=== PATIENT | female | born 1965 | race African-American/Black ===

== ENCOUNTER → 2016-11-30 | Outpatient (CLI) | payer OTHER ==
[~2016-11-30] MED LIST: ADAPEX; ADIPEX-P37.5 M1 PO; ALBUTEROL INH; AMOXICILLIN 50500 M1 PO; AUGMENTIN 875875 M1 PO; AUGMENTIN 875875 MG PO; AZITHROMYCIN 2250 MG PO; AZITHROMYCIN PO; BREO ELLIPTA 11 EACH IH; CEFTIN 250 MG250 MG; COMBIVENT RESPIM4 GM; CORTISPORIN OTI10 ML OTIC; DIETHYLPROPION25 MG PO; DIFLUCAN150 MG PO; DUONEB 2.5-0.5 M3 ML INH; GLUCOPHAGE XR500 M1 PO; GLUCOPHAGE500 MG; GLUCOSE TEST S1 EACH; LASIX 40 MG TAB40 M1 PO; METFORMIN HCL500 MG; MOBIC15 MG; MUCINEX DM ER1 EAC1 PO; MUCINEX600 MG PO; NAPROSYN500 MG PO; NORCO 5-325 TA1 EACH PO; PERCOCET 5-3251 EACH PO; PHENERGAN 25 MG25 M1 PO; PHENTERMINE H37.5 MG PO; PREDNISONE 10 M10 M1; PREDNISONE 10 M10 M1 PO; PREDNISONE 10 M10 MG PO; PREDNISONE 20 M20 M1 PO; PREDNISONE 5 MG5 M1 PO; PREDNISONE PO; PREDNISONE50 MG PO; PREMARIN0.625 MG PO; PROAIR HFA8.5 GM; PROAIR HFA8.5 GM INH; PROMETHAZINE-C120 ML PO; PULMICORT0.5 MG/21 INH; SIDESTREAM NEB1 EACH; SINGULAIR 10 MG10 M1; SINGULAIR 10 MG10 M1 PO; SYMBICORT160 MCG/4. INH; TRAMADOL 50 MG50 MG PO; TUSSIONEX PENN473 ML PO; ULTRAM 50MG TAB50 MG PO; VENTOLIN HFA 1818 GM INH; VICTOZA0.6 MG/0.1 SUBQ; VITAMIN D 5050000 I1 PO; ZPAK PO
== END ==
LOC: RAD 07:54
DX: Z12.31 Encounter for screening mammogram for malignant neoplasm of breast (principal)

== ENCOUNTER → 2017-01-31 | Outpatient (CLI) | payer OTHER | LOC: ULTRA 16:11 | DX: M25.48 Effusion, other site (principal); M79.89 Other specified soft tissue disorders; R60.1 Generalized edema ==

== ENCOUNTER → 2018-01-28 | Outpatient (CLI) | payer OTHER | LOC: RAD 14:43 | DX: Z12.31 Encounter for screening mammogram for malignant neoplasm of breast (principal) ==

== ENCOUNTER 2018-08-13 03:59 | Emergency (ER) | payer OTHER ==
[~2018-08-13] VITALS: Ht 172.7 cm; Wt 127.0 kg
[~2018-08-13 03:59] MED LIST changes: +AUGMENTIN 875-1 EACH PO; +CLARITIN10 MG PO; +FLONASE 0.05%50 MCG NASAL; +PREDNISONE 20 M20 MG PO; +PRILOSEC 20 MG20 MG PO
[2018-08-13 05:39] LABS: ABSOLUTE NEUTROPHILS 4.4 thou/uL (1.4-8.2); BASOPHILS 0.7 % (0.0-2.0); HEMATOCRIT 39.1 % (37.0-47.0); HEMOGLOBIN 13.1 gm/dL (12.0-15.0); LYMPHOCYTES 21.2 % (24.0-44.0); MCH 30.4 pg (26.0-34.0); MCHC 33.5 g/dL (28.0-37.0); MCV 90.7 fL (80.0-100.0); MONOCYTES 4.3 % (1.0-8.0); PLATELET COUNT 289 thou/uL (150-400); POLYS 70.8 % (36.0-66.0); RBC 4.32 mil/uL (4.20-5.00); RDW 13.4 % (10.5-14.5); WBC 6.2 thou/uL (4.0-11.0)
[2018-08-13 05:42] LABS: CALCIUM 8.8 mg/dL (8.5-10.1); POTASSIUM 4.1 mmol/L (3.5-5.1)
[2018-08-13] MEDS ORDERED: NORCO 5-325 TA1 EACH PO (06:05)
[2018-08-13 06:21] VITALS: BP 137/71
== END 2018-08-13 06:21 | disposition home or self-care (01) ==
LOC: ER 03:59
PROVIDERS: Student in an Organized Health Care Education/Training Program
DX: M19.011 Primary osteoarthritis, right shoulder (principal); J45.909 Unspecified asthma, uncomplicated; G43.909 Migraine, unspecified, not intractable, without status migrainosus; J32.9 Chronic sinusitis, unspecified; Z90.10 Acquired absence of unspecified breast and nipple; Z88.8 Allergy status to other drugs, medicaments and biological substances; Z88.2 Allergy status to sulfonamides; Z90.89 Acquired absence of other organs; Z90.711 Acquired absence of uterus with remaining cervical stump

== ENCOUNTER 2018-09-05 14:32 | Emergency (ER) | payer OTHER ==
[~2018-09-05] VITALS: Ht 172.7 cm; Wt 113.4 kg
[2018-09-05 15:24] LABS: ABSOLUTE NEUTROPHILS 3.2 thou/uL (1.4-8.2); EOSINOPHILS 5.3 % (0.0-3.0); HEMOGLOBIN 13.1 gm/dL (12.0-15.0); LYMPHOCYTES 33.4 % (24.0-44.0); MCH 30.8 pg (26.0-34.0); MCHC 34.4 g/dL (28.0-37.0); MCV 89.4 fL (80.0-100.0); MONOCYTES 8.2 % (1.0-8.0); PLATELET COUNT 286 thou/uL (150-400); POLYS 51.1 % (36.0-66.0); RBC 4.26 mil/uL (4.20-5.00); RDW 13.9 % (10.5-14.5); WBC 6.3 thou/uL (4.0-11.0)
[2018-09-05 15:33] LABS: ANION GAP 7 mmol/L (7-16); BUN 11 mg/dL (7-18); CALCIUM 8.7 mg/dL (8.5-10.1); CHLORIDE 104 mmol/L (98-107); CO2 29 mmol/L (21-32); CREATININE 1.2 mg/dL (0.6-1.0); GLUCOSE 116 mg/dL (74-106); POTASSIUM 3.7 mmol/L (3.5-5.1); SODIUM 140 mmol/L (136-145)
[2018-09-05 15:42] LABS: TROPONIN-I <0.06 ng/mL (<0.06)
[2018-09-05] MEDS ORDERED: MIRALAX17 GM PO (16:31)
[2018-09-05] MEDS ORDERED: BENTYL 20 MG TA20 M1 PO (16:31)
[2018-09-05 16:58] VITALS: BP 124/76
--- NOTE | 2018-09-06 10:44 | EKG ---
[place] [address] [facility] [place] [address] ELECTROCARDIOGRAM REPORT Name: VIRGILIO SEYMOUR [facility] [id number] Admission: 09/05/18 Attend Phys: Discharge: 09/05/18 Date of : 63 Report #: [id number] THIS REPORT FOR: //name// [facility] ED Test Date: 2018-09-05 Test Time: 15:16:31 Pat Name: VIRGILIO SEYMOUR Department: Room: Gender: F Inside Tester: : 1965 Requested By: Fabian Gomez Order Number: [id number] MD: Austin Kline Measurements Intervals [place] Rate: 93 P: 76 WV: 172 QRS: -4 QRSD: 99 T: 33 QT: 381 QTc: 474 Interpretive Statements Sinus rhythm RSR' in V1 or V2, right VCD Compared to ECG 05/01/2016 20:41:05 Sinus tachycardia no longer present Electronically Signed On 09-06-2018 10:44:27 LAMP SHADE MAKER by Austin Kline [email or web address] <ELECTRONICALLY SIGNED> By: Austin Kline MD, [facility] 09/06/18 1044 15 15 Austin Kline MD, FACC /EPI
== END 2018-09-05 18:03 | disposition home or self-care (01) ==
LOC: ER 14:32
PROVIDERS: Emergency Medicine
DX: K59.00 Constipation, unspecified (principal); R07.89 Other chest pain; J45.909 Unspecified asthma, uncomplicated; G43.909 Migraine, unspecified, not intractable, without status migrainosus; E66.9 Obesity, unspecified; Z68.38 Body mass index [BMI] 38.0-38.9, adult; Z88.2 Allergy status to sulfonamides; Z88.1 Allergy status to other antibiotic agents; Z88.8 Allergy status to other drugs, medicaments and biological substances; Z98.890 Other specified postprocedural states; Z90.711 Acquired absence of uterus with remaining cervical stump

== ENCOUNTER 2019-01-23 00:35 | Emergency (ER) | payer OTHER ==
[~2019-01-23] VITALS: Ht 170.2 cm; Wt 117.9 kg
[~2019-01-23 00:35] MED LIST changes: +BENTYL 20 MG TA20 M1 PO; +MIRALAX17 GM PO
[2019-01-23 01:36] LABS: URINE BILIRUBIN NEGATIVE (Negative); URINE BLOOD NEGATIVE (Negative); URINE CLARITY CLEAR; URINE COLOR YELLOW; URINE GLUCOSE-RANDOM* NEGATIVE (Negative); URINE KETONES NEGATIVE (Negative); URINE LEUKOCYTES-REFLEX NEGATIVE (Negative); URINE NITRITE-REFLEX NEGATIVE (Negative); URINE PROTEIN (DIPSTICK) NEGATIVE (Negative); URINE SPECIFIC GRAVITY >= 1.030 (1.005-1.035); URINE UROBILINOGEN 0.2 E.U./dl (0.2-1.0)
[2019-01-23 01:46] LABS: BASOPHILS 0.7 % (0.0-2.0); EOSINOPHILS 3.8 % (0.0-3.0); HEMATOCRIT 38.4 % (37.0-47.0); HEMOGLOBIN 12.8 gm/dL (12.0-15.0); LYMPHOCYTES 36.8 % (24.0-44.0); MCH 30.8 pg (26.0-34.0); MCHC 33.4 g/dL (28.0-37.0); MCV 92.3 fL (80.0-100.0); MONOCYTES 11.3 % (1.0-8.0); PLATELET COUNT 295 thou/uL (150-400); POLYS 47.4 % (36.0-66.0); RBC 4.16 mil/uL (4.20-5.00); RDW 14.3 % (10.5-14.5); WBC 6.4 thou/uL (4.0-11.0)
[2019-01-23 01:50] LABS: CALCIUM 9.1 mg/dL (8.5-10.1); CREATININE 0.9 mg/dL (0.6-1.0); POTASSIUM 3.8 mmol/L (3.5-5.1)
[2019-01-23 01:56] LABS: ALBUMIN 3.6 g/dL (3.4-5.0); TOTAL BILIRUBIN 0.3 mg/dL (<0.1-1.0); TOTAL PROTEIN 7.3 g/dL (6.4-8.2)
[2019-01-23] MEDS ORDERED: LIDODERM1 EACH TOP (02:05)
[2019-01-23] MEDS ORDERED: ROBAXIN500 MG PO (02:05)
[2019-01-23 03:00] VITALS: BP 131/83
== END 2019-01-23 03:05 | disposition home or self-care (01) ==
LOC: ER 00:35
PROVIDERS: Emergency Medicine
DX: S39.012A Strain of muscle, fascia and tendon of lower back, initial encounter (principal); J45.909 Unspecified asthma, uncomplicated; Z90.711 Acquired absence of uterus with remaining cervical stump; G43.909 Migraine, unspecified, not intractable, without status migrainosus; E66.9 Obesity, unspecified; Z68.41 Body mass index [BMI] 40.0-44.9, adult; Z88.2 Allergy status to sulfonamides; Z88.1 Allergy status to other antibiotic agents; Z88.8 Allergy status to other drugs, medicaments and biological substances; X58.XXXA Exposure to other specified factors, initial encounter; Y93.89 Activity, other specified; Y92.89 Other specified places as the place of occurrence of the external cause; Y99.8 Other external cause status

== ENCOUNTER 2019-02-03 07:15 | Emergency (ER) | payer OTHER ==
[~2019-02-03] VITALS: Ht 172.7 cm; Wt 116.6 kg
[~2019-02-03 07:15] MED LIST changes: +LIDODERM1 EACH TOP; +ROBAXIN500 MG PO
[2019-02-03 08:19] LABS: HEMOGLOBIN 12.5 gm/dL (12.0-15.0); MCHC 33.7 g/dL (28.0-37.0); MCV 92.1 fL (80.0-100.0); RBC 4.02 mil/uL (4.20-5.00); RDW 14.1 % (10.5-14.5); WBC 6.1 thou/uL (4.0-11.0)
[2019-02-03 08:26] LABS: ANION GAP 4 mmol/L (7-16); BUN 12 mg/dL (7-18); CALCIUM 8.9 mg/dL (8.5-10.1); CHLORIDE 107 mmol/L (98-107); CO2 29 mmol/L (21-32); CREATININE 0.9 mg/dL (0.6-1.0); GLUCOSE 98 mg/dL (74-106); POTASSIUM 3.8 mmol/L (3.5-5.1); SODIUM 140 mmol/L (136-145)
[2019-02-03 08:35] LABS: TROPONIN-I <0.06 ng/mL (<0.06)
[2019-02-03] MEDS ORDERED: ALBUTEROL2.5 MG/31 INH (09:09)
[2019-02-03] MEDS ORDERED: PREDNISONE50 MG PO (09:09)
[2019-02-03] MEDS ORDERED: GUAIFEN-CODEINE10 ML PO (09:09)
[2019-02-03 09:24] VITALS: BP 119/69
--- NOTE | 2019-02-04 08:10 | EKG ---
[place] [address] [facility] [place] [address] ELECTROCARDIOGRAM REPORT Name: IVRGILIO SEYMOUR [id number] ������������������ Admission: 02/03/19 ������������������ Attend Phys: Discharge: 02/03/19 ������������������ Date of : 63 Report #: [id number] ����������������������������������������������������������������� [id number] THIS REPORT FOR: //name// [facility] ED Test Date: 2019-02-03 Test Time: 08:03:47 Pat Name: VIRGILIO SEYMOUR Department: Room: Gender: F Maintenance Mechanic Elevators: : 1965 Requested By: Alise Cueto Order Number: [id number] MD: Austin Kline Measurements Intervals [place] Rate: 94 P: 75 FL: 176 QRS: 14 QRSD: 92 T: 38 QT: 383 QTc: 479 Interpretive Statements Sinus rhythm RSR' in V1 or V2, probably normal variant Compared to ECG 09/05/2018 15:16:31 No significant changes Electronically Signed On 02-04-2019 8:10:14 CDT by Austin Kline [email or web address] ��������������������������������������������� <ELECTRONICALLY SIGNED> ���������������������������������������� By: Austin Kline MD, [facility] ��������������������������������������������� 02/04/19809 D: [id number] 2 Austin Kline MD, FAC /EPI
== END 2019-02-03 09:01 | disposition home or self-care (01) ==
LOC: ER 07:15
PROVIDERS: Emergency Medicine
DX: R06.00 Dyspnea, unspecified (principal); J45.909 Unspecified asthma, uncomplicated; G43.909 Migraine, unspecified, not intractable, without status migrainosus; E66.9 Obesity, unspecified; Z88.5 Allergy status to narcotic agent; Z88.1 Allergy status to other antibiotic agents; Z88.2 Allergy status to sulfonamides; Z88.8 Allergy status to other drugs, medicaments and biological substances; Z68.39 Body mass index [BMI] 39.0-39.9, adult; Z98.890 Other specified postprocedural states; Z87.890 Personal history of sex reassignment

== ENCOUNTER 2019-02-05 15:08 | Inpatient (IN) | payer OTHER ==
[~2019-02-05] VITALS: Ht 172.7 cm; Wt 117.5 kg
--- NOTE | ~2019-02-05 | H ---
[facility] [place] [address] HISTORY AND PHYSICAL Name: VIRGILIO SEYMOUR Room #: 206-P ADM IN M.R.#: [id number] Admission: 02/05/19 ������������������ Attend Phys: Sam Tapia MD Discharge: ������������������ Date of : 63 Report #: [id number] THIS REPORT FOR: //name// CC: Sam Tapia DATE OF SERVICE: 02/05/2019 CHIEF COMPLAINT: Persistent asthma flare failing outpatient therapy. HISTORY OF PRESENT ILLNESS: For about the past 2 weeks, the patient has been battling an asthma flare. Most recently, she was in the Emergency Room 4 days ago at which point prednisone 50 mg daily was added to her regimen. She came to see me in the office this morning and still has not improved. She continues to have chest tightness, cough, dyspnea, chest pressure and is now producing purulent sputum. She has been hospitalized for asthma about every other year for the last 7 years, but has not been hospitalized since 2017. PAST MEDICAL HISTORY: Significant for asthma. She has had several of her asthma flares triggered by sinusitis. She has mild insulin resistance, but when treated with steroids, her blood sugars actually go up into the diabetic range. Her asthma began to be symptomatic in 1995. She had sinus surgery in September 2008. She has had a history of elevated IgE levels. She had a "partial hysterectomy" with [address] in October 2005. Dr. Bud Burdick (dry molder) diagnosed her with idiopathic urticaria. She has had breast reduction surgery in 2002. Sinus surgery, migraine headaches, GERD. She has had "arthritis" for some time now, most recently, she has been seeing Dr. Adamson who diagnosed her with rheumatoid arthritis for which she is undergoing treatment. CURRENT MEDICATIONS: Virtussin AC -- codeine based cough syrup, prednisone 50 mg a day for the last 4 days, is a new medication. She has ipratropium/albuterol by nebulizer at home, and albuterol by itself was added at a recent ER visit and ProAir inhaler. She takes montelukast daily for her asthma and has also been taking Mucinex DM twice daily. Methotrexate 6 tablets of 2.5 mg each every Saturday, folic acid daily, hydroxychloroquine 200 mg once daily, sulfasalazine 500 mg tablets twice daily, diclofenac 75 mg twice daily by Dr. Adamson for her rheumatoid arthritis, folic [address] [address] HISTORY AND PHYSICAL Name: VIRGILIO SEYMOUR Room #: 206-P [facility] ..#: [id number] Admission: 02/05/19 ������������������ Attend Phys: Sam Tapia MD Discharge: ������������������ Date of : 63 Report #: [id number] 1 daily. Furosemide 40 mg as needed for swelling in her legs, Belviq and phentermine [address] Sobeida Evans for her obesity. Methocarbamol 500 mg 3 times daily as needed for muscle relaxer. ALLERGIES: MORPHINE INJECTION GAVE HER DYSPHORIC FEELING AND NAUSEA AND VOMITING. SHE EXPERIENCED HALLUCINATION FEELINGS WHILE TAKING SULFAMETHOXAZOLE/TRIMETHOPRIM AND PHENAZOPYRIDINE SEVERAL YEARS AGO FOR URINARY TRACT INFECTION. FAMILY HISTORY: She has siblings and children who have asthma. SOCIAL HISTORY: She is and works at a desk job safety leader. She does not drink nor smoke. REVIEW OF SYSTEMS: Is negative except for the HPI above -- her rheumatoid arthritis symptoms are well controlled on her current regimen. PHYSICAL EXAMINATION: GENERAL: Shows a middle-aged woman with some respiratory distress -- in the hospital this evening after several breathing treatments, she is feeling better. HEENT: Unremarkable. LUNGS: Clear, but deep breathing causes uncontrollable paroxysm of coughing. CARDIOVASCULAR: S1 and S2 are normal. ABDOMEN: Soft and nontender without hepatosplenomegaly and is obese. EXTREMITIES: There is only a trace edema in her ankles and calves this evening. NEUROLOGIC: Screening neurological examination is intact. Chest x-ray from yesterday is normal. LABORATORY DATA: Fingerstick glucose is 157 after given IV Solu-Medrol. Complete metabolic profile and CBC are in the normal range. There is some mild left shift of 76% neutrophils, to be expected after receiving prednisone. ASSESSMENT: 1. Persistent asthma flare. 2. History of sinus infection triggering asthma in the past. 3. Insulin resistance that develops geovanna hyperglycemia with a corticosteroid administration. 4. Stable, controlled rheumatoid arthritis. 5. She is immunosuppressed from her methotrexate as well as her recent prednisone. 6. Acute bronchitis with the development of purulent sputum. 7. Obesity with a height of 172 cm when admitted to the hospital and weight of [facility] [address] [place] [address] HISTORY AND PHYSICAL Name: VIRGILIO SEYMOUR Room #: 206-P ADM IN M.R.#: [id number] Admission: 02/05/19 ������������������ Attend Phys: Sam Tapia MD Discharge: ������������������ Date of : 63 Report #: [id number] 259 pounds for a body mass index of 39.70, essentially a body mass index of 40. PLAN: She was seen earlier this afternoon by Dr. Perez Alonso of the Pulmonary Medicine Department and admission was directed through his office. He has ordered antibiotics, intravenous corticosteroids and bttsja-ril-urhna aerosolized bronchodilator treatments. Sliding scale insulin was used to control her blood sugars as they become elevated, which is anticipated because it has happened in the past. Dr. Alonso has ordered subcutaneous heparin for deep venous thrombosis prophylaxis. A CT scan of the sinuses will be performed to see if an acute/chronic sinus infection may be one of her asthma triggers. ��������������������������������������������� ���������������������������������������� By: ��������������������������������������������� [id number] Sam Tapia MD /raquel
[~2019-02-05 15:08] MED LIST changes: +ALBUTEROL2.5 MG/31 INH; +GUAIFEN-CODEINE10 ML PO
[2019-02-05 15:51] LABS: HEMATOCRIT 37.8 % (37.0-47.0); HEMOGLOBIN 12.5 gm/dL (12.0-15.0); MCH 30.4 pg (26.0-34.0); MCV 92.2 fL (80.0-100.0); PLATELET COUNT 303 thou/uL (150-400); RDW 14.1 % (10.5-14.5); WBC 8.2 thou/uL (4.0-11.0)
[2019-02-05 16:05] LABS: ALBUMIN 3.5 g/dL (3.4-5.0); CALCIUM 8.9 mg/dL (8.5-10.1); POTASSIUM 4.6 mmol/L (3.5-5.1); TOTAL BILIRUBIN 0.2 mg/dL (<0.1-1.0); TOTAL PROTEIN 7.6 g/dL (6.4-8.2)
--- NOTE | 2019-02-05 16:27 | NUR ---
PT DIRECT ADMIT FROM DR BRADFORD'S OFFICE - ADMITTED UNDER PRIMARY DR HOUSTON. ASSESSMENT CHARTED - MED RECONCILIATION COMPLETED. PT WITH TIGHT SOUNDING LUNGS AND COUGH. UP AD ANDREW IN ROOM- STEADY ON FFET. NO CO'S OF PAIN OR NAUSEA. ORIENTED TO ROOM AND BEDSPACE - HAS VISITORS WITH HER AT THE PRESENT TIME. NO CO'S AT PRESENT .
[2019-02-05 16:35] LABS: ABSOLUTE NEUTROPHILS 6.3 thou/uL (1.4-8.2); ANISOCYTOSIS 1+; METAMYELOCYTES 1 %; POLYCHROMASIA OCCASIONAL
[2019-02-05 17:40] VITALS: BP 123/77
[2019-02-05 19:43] VITALS: BP 132/79
[2019-02-06 00:33] VITALS: BP 127/70
[2019-02-06 00:45] LABS: URINE BILIRUBIN NEGATIVE (Negative); URINE BLOOD NEGATIVE (Negative); URINE CLARITY CLEAR; URINE COLOR YELLOW; URINE GLUCOSE-RANDOM* NEGATIVE (Negative); URINE KETONES NEGATIVE (Negative); URINE LEUKOCYTES NEGATIVE (Negative); URINE NITRITE NEGATIVE (Negative); URINE PROTEIN (DIPSTICK) NEGATIVE (Negative); URINE SPECIFIC GRAVITY 1.025 (1.005-1.035); URINE UROBILINOGEN 0.2 E.U./dl (0.2-1.0)
--- NOTE | 2019-02-06 02:55 | NUR ---
ASSUMED PT CARE AT 1900. PT A/OX4, VITALS SIGNS STABLE, ASSESSMENT CHARTED. NO COMPLAINTS OF SOB, PT STATED THE BREATHING TREATMENTS HELPS VERY MUCH. PRN AND SCHEDULED BREATHING TREATMENTS ORDERED. PT INDEPENDENT IN ROOM, CALLS FOR HELP APPROPRIATELY. PT RESTED WELL THROUGH THE NIGHT. NO COMPLAINTS OF CHEST PAIN. STILL HAS A NON-PRODUCTIVE COUGH. PROGRESSING TOWARD PLAN OF CARE. WILL CONTINUE TO MONITOR AND ASSIST.
[2019-02-06 03:43] VITALS: BP 132/78
[2019-02-06 07:45] VITALS: BP 108/60
[2019-02-06 10:06] LABS: GLYCOHEMOGLOBIN (HGB A1C) 5.9 % (4.8-5.6)
[2019-02-06] MEDS ORDERED: LASIX 40 MG TAB40 M2 PO (10:13)
[2019-02-06] MEDS ORDERED: POTASSIUM20 PO (10:14)
[2019-02-06] MEDS ORDERED: BELVIQ XR20 MG PO (10:16)
[2019-02-06] MEDS ORDERED: FLEXERIL PO (10:17)
[2019-02-06] MEDS ORDERED: SINGULAIR 10 MG10 M1 PO (11:30)
[2019-02-06] MEDS ORDERED: FOLIC ACID1 MG PO (11:31)
[2019-02-06] MEDS ORDERED: METHOTREXATE 22.5 MG PO (11:32)
[2019-02-06 11:35] VITALS: BP 150/68
[2019-02-06] MEDS ORDERED: HYDROXYCHLOROQ200 M1 PO (11:36)
[2019-02-06] MEDS ORDERED: SULFASALAZINE500 M4 PO (11:37)
[2019-02-06] MEDS ORDERED: DICLOFENAC SODI75 MG PO (13:32)
--- NOTE | 2019-02-06 14:26 | NUR ---
ASSUMED CARE AT 0700, SHIFT ASSESSMENT DONE, MEDS GIVEN, VSS. DENIES ANY NAUSEA, VOMITING, PAIN. UP AD ANDREW. ROOM AIR. MED REC DONE. WILL CONTINUE TO ASSESS AND ASSIST WITH ADLs NEEDED.
[2019-02-06 16:05] VITALS: BP 120/55
--- NOTE | 2019-02-06 18:39 | HC ---
[facility] [place] [address] CONSULTATION Name: VIRGILIO SEYMOUR Room #: 206-P ADM IN M.R.#: [id number] Admission: 02/05/19 ������������������ Attend Phys: Sam Tapia MD Discharge: ������������������ Date of : 63 Report #: [id number] THIS REPORT FOR: //name// CC: Sam Tapia DATE OF SERVICE: 02/05/2019 PULMONARY CONSULTATION REFERRING PHYSICIAN: Sam Tapia M.D. REASON FOR REFERRAL: Persistent asthma exacerbation. HISTORY OF PRESENT ILLNESS: The patient is a 53-year-old -[place] female with asthma presents with persistent cough and dyspnea. A pulmonary consultation was requested. The patient has known history of asthma. She is followed longitudinally by Dr. Cornelio Evans. Her baseline FEV1 was 1.58 liters, 64% predicted based on spirometry performed in 11/2017. She is normally on Breo 200 mcg/25 1 puff once a day, montelukast, albuterol p.r.n. She has been doing fairly well until for the past several days. She started to develop cough, dyspnea, chest tightness. She was given steroids several days ago. Despite steroids, she continues to have trouble. For the last couple of days, she developed productive cough of yellowish sputum. With persistent symptoms, I had recommended the patient be admitted to the hospital for failed outpatient therapy. Otherwise, the patient denies any febrile illness, night sweats or chills, chest pain or productive cough. PAST MEDICAL HISTORY: Include long history of asthma, hypertension. PAST SURGICAL HISTORY: Include hammertoe surgery, hysterectomy, reduction mammoplasty, sinus surgery. ALLERGIES: BACTRIM, WHICH CAUSES ANAPHYLACTIC REACTION. HOME MEDICATIONS: Reviewed. These include ProAir 2 puffs p.r.n., folic acid once a day, Lasix 40 mg once a day, nebulized DuoNeb q.i.d. p.r.n., methotrexate, she takes 6 tablets p.o. every 7 days, Singulair 10 mg once a day, naltrexone-bupropion once a day, Breo 200/25 mg 1 puff once a day. FAMILY HISTORY: Notable for father at the age of 73 due to prostate [facility] [address] [place] [address] CONSULTATION Name: VIRGILIO SEYMOUR Room #: 206-P [facility] IN [facility].#: [id number] Admission: 02/05/19 ������������������ Attend Phys: Sam Tapia MD Discharge: ������������������ Date of : 63 Report #: [id number] cancer. Mother at the age of 69. She had pulmonary hypertension. SOCIAL HISTORY: She is a lifetime nonsmoker. Denies any alcohol use. REVIEW OF SYSTEMS: As mentioned above, otherwise 10-point system review negative. PHYSICAL EXAMINATION: GENERAL: She is awake, alert, in mild distress due to cough and dyspnea. VITAL SIGNS: Temperature is 98 degrees Fahrenheit, pulse is 90, respiratory rate is 18, blood pressure 120/77 mmHg, saturation 98%. HEENT: Normocephalic, atraumatic. NECK: Supple, without any lymphadenopathy or thyromegaly. CHEST: Breath sounds are fair with mild expiratory wheezes. No rales. CARDIOVASCULAR: Normal S1, S2. There are no murmurs or gallop. There is no JVD. There is no carotid bruit. Pulses are 2+/4+ bilaterally. ABDOMEN: Soft, nontender, no organomegaly or masses felt. GENITOURINARY: Deferred. RECTAL: Deferred. EXTREMITIES: There is no edema, cyanosis or clubbing. LABORATORY DATA: Chest x-ray is clear. Rest of the laboratory data is pending. IMPRESSION: 1. Exacerbation of asthma, persistent symptoms, failed outpatient therapy. Agree with hospitalization. 2. Hypertension. 3. History of idiopathic urticaria, followed by bed maker, Dr. Burdick. 4. Rheumatoid arthritis, currently undergoing methotrexate therapy. She is followed by rheumatology. RECOMMENDATION: Continue bronchodilators, corticosteroids and antibiotics for presumed acute bronchitis. DVT and GI prophylaxis recommended. Thank you for this consultation. ��������������������������������������������� <ELECTRONICALLY SIGNED> ���������������������������������������� By: Perez Alonso MD ��������������������������������������������� 02/06/19 1839 1725 1827 Perez Alonso MD /nt
[2019-02-06 19:43] VITALS: BP 135/65
--- NOTE | 2019-02-07 04:13 | NUR ---
ASSUMED PT CARE AT 1900. PT A/OX4, VITAL SIGNS STABLE, ASSESSMENT CHARTED. NO COMPLAINTS OF PAIN OR SOB. RESTED WELL THROUGH THE NIGHT. WILL CONTINUE TO MONITOR.
[2019-02-07 04:23] VITALS: BP 131/60
[2019-02-07 07:50] VITALS: BP 124/86
[2019-02-07 09:12] LABS: HEMATOCRIT 40.1 % (37.0-47.0); HEMOGLOBIN 13.1 gm/dL (12.0-15.0); MCH 30.4 pg (26.0-34.0); MCHC 32.8 g/dL (28.0-37.0); MCV 92.8 fL (80.0-100.0); RBC 4.32 mil/uL (4.20-5.00); RDW 13.8 % (10.5-14.5)
[2019-02-07 09:20] LABS: CALCIUM 8.7 mg/dL (8.5-10.1); CREATININE 1.1 mg/dL (0.6-1.0); POTASSIUM 4.3 mmol/L (3.5-5.1)
[2019-02-07 11:40] VITALS: BP 129/69
[2019-02-07 15:45] VITALS: BP 129/75
--- NOTE | 2019-02-07 16:27 | NUR ---
ALERT X4, ABLE TO MAKE NEEDS KNOWN. CONTINUES ON BREATHING TREATMENTS. ENCOURAGED TO WALK AROUND NURSING STATION. TREATED BS WITH LOW SLIDING SCALE. PATIENT REPORTED PER THE DOCTOR SHE WOULD GO HOME TOMORROW. UP AB ANDREW.
--- NOTE | 2019-02-07 20:04 | NUR ---
ASSUMED CARE OF PATIENT AT 1830, PT A&OX4, VSS, DENIES PAIN. PT DENIES SOA, NO COUGH AT THIS TIME. PT STABLE RESTING IN BED WITH FAMILY AT BEDSIDE. REASSESSMENT COMPLETED. WILL CONTINUE TO MONITOR.
--- NOTE | 2019-02-08 03:12 | NUR ---
ASSUMED CARE AROUND 1900. AXOX4. NO S/S ACUTE DISTRESS NOTED OR REPORTED AT THIS TIME. WILL CONT TO MONITOR FOR ANY CHANGES IN CONDITION.
[2019-02-08 03:55] VITALS: BP 134/82
[2019-02-08 07:20] VITALS: BP 140/75
--- NOTE | 2019-02-08 13:41 | NUR ---
TOWARDS POC PT A/O X4, VSS, AFEBRILE, DENIES SOA. PT OK FOR DC PER COTTON FARMWORKER. PROVIDER NOTIFIED.
[2019-02-08 14:01] VITALS: BP 144/83
[2019-02-08] MEDS ORDERED: PREDNISONE 10 M10 MG PO (15:09)
[2019-02-08] MEDS ORDERED: DOXYCYCLINE 10100 MG PO (15:13)
[2019-02-08 15:22] VITALS: BP 144/83
[2019-02-10 16:05] LABS: ADENOVIRUS Negative (Negative); INFLUENZA A Negative (Negative); INFLUENZA B Negative (Negative); METAPNEUMOVIRUS Negative (Negative); PARAINFLUENZA 1 Negative (Negative); PARAINFLUENZA 2 Negative (Negative); PARAINFLUENZA 3 Negative (Negative); RHINOVIRUS Negative (Negative); RSV A Negative (Negative); RSV B Negative (Negative)
== END 2019-02-08 18:22 | disposition home or self-care (01) | DRG 202 ==
LOC: 2N 15:08 → 4W 02-07 18:16
PROVIDERS: ADMIT Internal Medicine
DX: J20.9 Acute bronchitis, unspecified (principal); J45.901 Unspecified asthma with (acute) exacerbation; I10 Essential (primary) hypertension; M06.9 Rheumatoid arthritis, unspecified; G43.909 Migraine, unspecified, not intractable, without status migrainosus; R73.9 Hyperglycemia, unspecified; L50.1 Idiopathic urticaria; K59.00 Constipation, unspecified; E66.9 Obesity, unspecified; Z68.39 Body mass index [BMI] 39.0-39.9, adult; Z90.710 Acquired absence of both cervix and uterus; Z79.899 Other long term (current) drug therapy; Z88.1 Allergy status to other antibiotic agents; Z88.5 Allergy status to narcotic agent; Z88.8 Allergy status to other drugs, medicaments and biological substances; Z82.49 Family history of ischemic heart disease and other diseases of the circulatory system
CPT/HCPCS: 10047; 10797

== ENCOUNTER → 2019-05-11 | Outpatient (CLI) | payer OTHER ==
[~2019-05-11] MED LIST changes: +BELVIQ XR20 MG PO; +DICLOFENAC SODI75 MG PO; +DOXYCYCLINE 10100 MG PO; +FLEXERIL PO; +FOLIC ACID1 MG PO; +HYDROXYCHLOROQ200 M1 PO; +LASIX 40 MG TAB40 M2 PO; +METHOTREXATE 22.5 MG PO; +POTASSIUM20 PO; +SULFASALAZINE500 M4 PO
== END ==
LOC: RAD 12:19
DX: R06.00 Dyspnea, unspecified (principal); Z88.8 Allergy status to other drugs, medicaments and biological substances

== ENCOUNTER → 2019-06-26 | Outpatient (CLI) | payer OTHER | LOC: RAD 12:22 | DX: Z12.31 Encounter for screening mammogram for malignant neoplasm of breast (principal) ==

== ENCOUNTER → 2020-11-28 | Outpatient (CLI) | payer BC, OTHER | LOC: RAD 14:06 | PROVIDERS: ATTEND Internal Medicine | DX: Z12.31 Encounter for screening mammogram for malignant neoplasm of breast (principal) ==

== ENCOUNTER 2021-05-23 17:08 | Emergency (ER) | payer BC, OTHER ==
[~2021-05-23] VITALS: Ht 172.7 cm; Wt 117.9 kg
[2021-05-23 17:11] VITALS: BP 143/74
[2021-05-23] MEDS ORDERED: MOBIC7.5 MG PO (18:20)
== END 2021-05-23 18:36 | disposition home or self-care (01) ==
LOC: ER 17:08
DX: R06.00 Dyspnea, unspecified (principal); M54.50 Low back pain, unspecified; J45.909 Unspecified asthma, uncomplicated; G43.909 Migraine, unspecified, not intractable, without status migrainosus; M06.9 Rheumatoid arthritis, unspecified; E66.9 Obesity, unspecified; Z90.89 Acquired absence of other organs; Z90.49 Acquired absence of other specified parts of digestive tract; Z90.711 Acquired absence of uterus with remaining cervical stump; Z98.890 Other specified postprocedural states; Z79.51 Long term (current) use of inhaled steroids; Z79.891 Long term (current) use of opiate analgesic; Z79.1 Long term (current) use of non-steroidal anti-inflammatories (NSAID); Z79.899 Other long term (current) drug therapy; Z88.8 Allergy status to other drugs, medicaments and biological substances; Z88.2 Allergy status to sulfonamides; Z88.5 Allergy status to narcotic agent; Z68.39 Body mass index [BMI] 39.0-39.9, adult

== ENCOUNTER → 2021-06-15 | Outpatient (CLI) | payer OTHER, BC ==
[~2021-06-15] MED LIST changes: +MOBIC7.5 MG PO
== END ==
LOC: RAD 13:54
PROVIDERS: ATTEND Internal Medicine
DX: R06.00 Dyspnea, unspecified (principal)

== ENCOUNTER 2021-09-24 15:22 | Emergency (ER) | payer OTHER, BC ==
[~2021-09-24] VITALS: Ht 170.2 cm; Wt 122.5 kg
[2021-09-24] MEDS ORDERED: METHOCARBAMOL500 M2 PO (17:44)
[2021-09-24 18:17] VITALS: BP 140/68
== END 2021-09-24 18:17 | disposition home or self-care (01) ==
LOC: ER 15:22
DX: S16.1XXA Strain of muscle, fascia and tendon at neck level, initial encounter (principal); S39.012A Strain of muscle, fascia and tendon of lower back, initial encounter; J45.909 Unspecified asthma, uncomplicated; G43.909 Migraine, unspecified, not intractable, without status migrainosus; M06.9 Rheumatoid arthritis, unspecified; Z90.711 Acquired absence of uterus with remaining cervical stump; Z79.899 Other long term (current) drug therapy; Z90.89 Acquired absence of other organs; Z88.2 Allergy status to sulfonamides; Z88.5 Allergy status to narcotic agent; V89.2XXA Person injured in unspecified motor-vehicle accident, traffic, initial encounter; W22.19XA Striking against or struck by other automobile airbag, initial encounter; Y93.89 Activity, other specified; Y92.89 Other specified places as the place of occurrence of the external cause; Y99.8 Other external cause status